=== PATIENT | female | born 1980 | race Caucasian/White ===

== ENCOUNTER 2016-09-06 13:29 | Outpatient (CLI) | payer OTHER ==
[2014-08-01 23:19] VITALS: BP 139/79
[2016-09-06 14:04] LABS: BASOPHILS % 0.4 (0.0-1.5); EOSINOPHILS % 4.4 % (0.0-6.8); MONOCYTES # 0.2 # k/uL (0.0-0.9); NEUTROPHILS # 3.2 # k/uL (1.4-7.7)
== END 2016-09-06 13:30 ==
LOC: LAB 13:29
PROVIDERS: ATTEND Physician Assistant
DX: R53.83 Other fatigue (principal)
CPT/HCPCS: 36415; 84443; 85025